=== PATIENT | female | born 1975 | race Caucasian/White ===

== ENCOUNTER 2022-01-13 12:06 | Emergency (ER) | payer OTHER ==
[~2022-01-13] VITALS: Ht 165.1 cm; Wt 81.6 kg
[2022-01-13 12:18] VITALS: BP_SYST 116
[2022-01-13] MEDS ORDERED: EPINEPHRINE HCL/PF 1 MG/ML AMP IM ONE (12:30)
[2022-01-13] MEDS ORDERED: predniSONE 20 MG TABLET PO ONE (12:30)
[2022-01-13] MEDS ORDERED: EPIN0.3P3 IM (13:56)
[2022-01-13 14:05] VITALS: BP_SYST 132
== END 2022-01-13 14:24 | disposition home or self-care (01) ==
LOC: SED 12:06
DX: T78.3XXA Angioneurotic edema, initial encounter (principal); R22.32 Localized swelling, mass and lump, left upper limb
CPT/HCPCS: 96372; 99283; J0171; J7512